=== PATIENT | female | born 2000 | race Hispanic/Latino ===

== ENCOUNTER 2022-06-18 04:59 | Inpatient (IN) | payer OTHER, SELFPAY ==
[2022-06-18] VITALS (104 sets, daily range): BP systolic 78–143; BP diastolic 46–95; PULSE 60–103; RESP 16–18; TEMP 36.2–37.1; O2SAT 92–100; BMI 32.8
--- NOTE | 2022-06-18 04:59 | LDADM ---
This patient, Iman Perera, was admitted to Labor/Delivery/Recovery 103 on 06/18/22 at 04:59. Plans for labor, pain management and were discussed with patient. Patient/family oriented to hospital policies and general routines including ID bracelet, bed and alarms, visiting hours, pain management, procedures, bathroom and other care routines, personal items, smoking policy, room service/diet and guest tray routines, infant security routines, and visiting hours. Patient/Family are encouraged to report perceived risks to care and to ask questions if they do not understand what they are told or what they should do. See OBIX for further documentation.
--- NOTE | 2022-06-18 05:27 | PM.IMHP ---
H&P: HPI History of Present Illness Date/Time: 06/18/22 05:27 Chief Complaint: Elevated blood pressure at term Narrative: this is a 21-year-old 2 para 1 last menstrual period was 09/21/2021, EDC is 06/28/2022, presents at 38 half weeks gestation for induction of labor. Her blood pressures have been elevated over the last 3 visits. She had a slight headache she is admitted for induction of labor she has an early ultrasound confirming. [facility] Family History Family History Other No pertinent family history Social History Social History Substance use: never Spiritual care concerns: No Meds Home Medications and Allergies Home Medications Medication Instructions Recorded Confirmed Type escitalopram oxalate 10 mg tablet 10 mg PO DAILY 06/02/22 06/02/22 History (Lexapro) vit no.95-ferrous 1 tablet PO DAILY 06/02/22 06/02/22 History fumarate 28 mg-folic acid 800 mcg tablet () Allergies Allergy/AdvReac Type Severity Reaction Status Date / Time No Known Allergies Allergy Unverified 12/06/17 18:40 Vital Signs Vital Signs - 24 hr 06/18/22 05:18 Pulse Rate 95 Blood Pressure 130/85 Exam Const: General: cooperative, healthy appearing and comfortable Nutritional Appearance: average body habitus Orientation/consciousness: oriented to person, oriented to place and oriented to time HENMT: Head: normal to inspection Resp: Effort & Inspection: normal respiratory effort Cardio: Rate: regular rate Rhythm: regular rhythm Heart sounds: S1 normal heart sound present and S2 normal heart sound present GI: Inspection: normal to inspection ( Soft gravid uterus) Auscultation: normal bowel sounds : External Female Exam: normal external appearance Speculum Exam - Vagina: normal appearance of the vagina Speculum Exam - Cervix: normal appearance of the cervix ( heart tones reassuring.) Assessment and Plan Assessment and plan (1) Term : Code(s): Z34.90 - Encounter for supervision of normal , unspecified, unspecified trimester Status: Acute (2) Gestational hypertension: Code(s): O13.9 - Gestational [-induced] hypertension without significant proteinuria, unspecified trimester Status: Acute (3) Positive testing for group B Streptococcus: Code(s): B95.1 - Streptococcus, group B, as the cause of diseases classified elsewhere Status: Acute Plan medical induction of labor. Spontaneous vaginal delivery is expected. She has an epidural candidate. She will be prophylaxed for group B strep. PH labs are drawn
[2022-06-18] MEDS: LACTATED RINGERS 1,000 ML 125 ML IV CONT ×3 (05:32→10:30)
[2022-06-18] MEDS: AMPICILLIN 2 GM/NS 100 ML 2 GM/100 ML BAG IVPB (05:33)
[2022-06-18] MEDS: OXYTOCIN 30 UNITS/NS 500 ML 30 UNITS/500 ML BAG IV CONT (05:33)
[2022-06-18 05:43] LABS: Alanine Aminotransferase 22 U/L (6-35); Albumin Level 3.8 g/dL (3.5-5.1); Alkaline Phosphatase 147 U/L (38-126); Anion Gap 8 mmol/L (8-16); Aspartate Amino Transferase 30 U/L (14-36); Bilirubin,Total 0.6 mg/dL (0.2-1.3); Blood Urea Nitrogen 9 mg/dL (7-17); Calcium 8.5 mg/dL (8.4-10.2); Carbon Dioxide 25 mmol/L (22-30); Chloride 103 mmol/L (98-107); Estimated Glomerular Filt Rate > 60; Glucose 98 mg/dL (65-110); Potassium 3.6 mmol/L (3.4-5.0); Sodium 136 mmol/L (137-145); Uric Acid 3.7 mg/dL (2.5-7.5)
[2022-06-18 05:45] LABS: Basophils Percent Auto 0.5 % (0.2-1.2); Eosinophils Absolute Auto 0.3 K/mm3 (0-0.3); Eosinophils Percent Auto 4.1 % (0-4.4); Hematocrit 38.7 % (37.0-47.0); Hemoglobin 13.4 g/dL (12.0-15.0); Immature Granulocyte Absolute 0.04 K/mm3 (0.00-0.031); Immature Granulocyte Percent A 0.5 % (0-0.5); Lymphocytes Absolute Auto 1.65 K/mm3 (0.9-3.2); Lymphocytes Percent Auto 20.3 % (18.3-44.2); Mean Corpuscular HGB Conc 34.6 g/dl (32-36); Mean Corpuscular Volume 89.6 fl (80-100); Mean Platelet Volume 10.3 fl (7.4-10.4); Monocytes Absolute Auto 0.6 K/mm3 (0.1-0.6); Monocytes Percent Auto 7.6 % (2.6-8.5); Neutrophils Absolute Auto 5.4 K/mm3 (1.3-6.7); Platelet Count Result 191 k/mm3 (150-375); Red Blood Count 4.32 M/mm3 (4.2-5.4); Red Cell Distribution Width 12.7 % (11.5-14.5); White Blood Count 8.1 K/mm3 (4.5-10.0)
[2022-06-18] MEDS: AMPICILLIN 1 GM/NS 50 ML 1 GM/50 ML BAG IVPB (09:13)
--- NOTE | 2022-06-18 09:17 | WPDANESEPP ---
Anes - Eval Pre Procedure Procedure: Labor Epidural Date/Time: 06/18/22 09:17 Surgeon: Arslan Preop Diagnosis: Pain during Labor Pre Op Diagnosis: Induction of Labor Patient Data Age: 21 Gender: F Height: 1.73 m Weight: 97.75 kg Last Vital Signs Temp 36.6 C 06/18/22 05:52 Pulse 88 06/18/22 09:15 BP 126/79 06/18/22 09:15 Pulse Ox 100 06/18/22 09:13 O2 Del Method Room Air 06/18/22 05:39 Allergies Allergy/AdvReac Type Severity Reaction Status Date / Time No Known Allergies Allergy Unverified 12/06/17 18:40 Home Medications Medication Instructions Recorded Confirmed Type escitalopram oxalate 10 mg tablet 10 mg PO DAILY 06/02/22 06/18/22 History (Lexapro) vit no.95-ferrous 1 tablet PO DAILY 06/02/22 06/18/22 History fumarate 28 mg-folic acid 800 mcg tablet () Laboratory Tests 06/18/22 06/18/22 06/18/22 05:18 05:18 05:18 WBC 8.1 K/mm3 K/mm3 (4.5-10.0) RBC 4.32 M/mm3 M/mm3 (4.2-5.4) Hgb 13.4 g/dL g/dL (12.0-15.0) Hct 38.7 % % (37.0-47.0) MCV 89.6 fl fl (80-100) MCH 31.0 pg pg (26-34) MCHC 34.6 g/dl g/dl (32-36) RDW 12.7 % % (11.5-14.5) Plt Count 191 k/mm3 k/mm3 (150-375) MPV 10.3 fl fl (7.4-10.4) Immature Gran % (Auto) 0.5 % % (0-0.5) Neut % (Auto) 67.0 % % (45.5-73.1) Lymph % (Auto) 20.3 % % (18.3-44.2) [place] % (Auto) 7.6 % % (2.6-8.5) Eos % (Auto) 4.1 % % (0-4.4) Baso % (Auto) 0.5 % % (0.2-1.2) Lymph # (Auto) 1.65 K/mm3 K/mm3 (0.9-3.2) [place] # (Auto) 0.6 K/mm3 K/mm3 (0.1-0.6) Eos # (Auto) 0.3 K/mm3 K/mm3 (0-0.3) Baso # (Auto) 0.0 K/mm3 K/mm3 (0.0-0.1) Abs Immat Gran (auto) 0.04 K/mm3 H K/mm3 (0.00-0.031) Absolute Neuts (auto) 5.4 K/mm3 K/mm3 (1.3-6.7) Absolute Nucleated RBC 0.0 K/mm3 K/mm3 (0.0-0.012) Nucleated RBC % 0.0 % % (0.0-0.2) Sodium Potassium Chloride Carbon Dioxide Anion Gap BUN Creatinine Estim Creat Clear Calc Estimated GFR Glucose Uric Acid Calcium Total Bilirubin AST ALT Alkaline Phosphatase Total Protein Albumin RPR Pending Blood Type O Negative Antibody Screen Positive Antibody Identification Passive Due to RH Imm Glob Antigen Identification Cancelled SOBIA, IgG Interpret Not Performed SOBIA, Poly Interpret Negative SOBIA, Complement Interp Not Performed 06/18/22 05:18 WBC RBC Hgb Hct MCV MCH MCHC RDW Plt Count MPV Immature Gran % (Auto) Neut % (Auto) Lymph % (Auto) [place] % (Auto) Eos % (Auto) Baso % (Auto) Lymph # (Auto) [place] # (Auto) Eos # (Auto) Baso # (Auto) Abs Immat Gran (auto) Absolute Neuts (auto) Absolute Nucleated RBC Nucleated RBC % Sodium 136 mmol/L L mmol/L (137-145) Potassium 3.6 mmol/L mmol/L (3.4-5.0) Chloride 103 mmol/L mmol/L (98-107) Carbon Dioxide 25 mmol/L mmol/L (22-30) Anion Gap 8 mmol/L mmol/L (8-16) BUN 9 mg/dL mg/dL (7-17) Creatinine 0.60 mg/dL L mg/dL (0.7-1.0) Estim Creat Clear Calc Not Reportable Estimated GFR > 60 (59 - ) Glucose 98 mg/dL mg/dL (65-110) Uric Acid 3.7 mg/dL mg/dL (2.5-7.5) Calcium 8.5 mg/dL mg/dL (8.4-10.2) Total Bilirubin 0.6 mg/dL mg/dL (0.2-1.3) AST 30 U/L U/L (14-36) ALT 22 U/L U/L (6-35) Alkaline Phosphatase 147 U/L H U/L (38-126) Tota
[2022-06-18] MEDS: ONDANSETRON INJ 4 MG/2 ML VIAL IV PUSH (10:19)
--- NOTE | 2022-06-18 12:43 | P.PCNOB_ITS ---
OB - Delivery Note Procedure Delivery date: 06/18/22 Procedure: mil Events: Chronic Hypertension Induction method: AROM Delivery augmentation: Pitocin Delivery monitor: External FHT Route of delivery: Episiotomy description: None Laceration Description: None Specimen: No Quantitative Blood Loss (ml): 60 Anesthesia type: Epidural Disposition: Floor [place] Baby Date of : 06/18/22 Time of : 12:37 Weeks of gestation at delivery: 38 presentation: vertex position: Right Occiput Anterior Placenta delivery description: Spontaneous Cord Vessel Description: 3 Vessels, Nuchal Cord and Loose score one minute: 8 score five minutes: 8
--- NOTE | 2022-06-18 12:45 | PM.DS ---
DS: Admitting Diagnosis Discharge Date 06/20/2022 Admitting Diagnosis 38+ week with gestation/ positive group B strep DS: Discharge Diagnosis Discharge Diagnosis (1) Positive testing for group B Streptococcus: Code(s): B95.1 - Streptococcus, group B, as the cause of diseases classified elsewhere Status: Acute (2) Gestational hypertension: Code(s): O13.9 - Gestational [-induced] hypertension without significant proteinuria, unspecified trimester Status: Acute (3) Term : Code(s): Z34.90 - Encounter for supervision of normal , unspecified, unspecified trimester Status: Acute DS: Summary Hospital Course Reason for hospitalization: patient was admitted for induction of labor secondary to elevated blood pressures. Hospital Course: Patient underwent spontaneous vaginal delivery at 12:37 p.m. 329 23. She was prophylaxed adequately with for group B strep. She was watched for the next 48hours. She remained afebrile. She was up, voiding without difficulty, ambulating, breast-feeding alma generally without complaint. Time Spent with Patient Time attestation: Total time spent providing and/or coordinating discharge services: Exam Const: General: cooperative, healthy appearing, comfortable and well groomed Nutritional Appearance: average body habitus Orientation/consciousness: oriented to person, oriented to place and oriented to time HENMT: Head: normal to inspection Resp: Effort & Inspection: normal respiratory effort Cardio: Rate: regular rate Rhythm: regular rhythm Heart sounds: S1 normal heart sound present and S2 normal heart sound present GI: Inspection: normal to inspection ( Fundus firm below the umbilicus) Auscultation: normal bowel sounds DS: Data Data Completed and Pending Labs on day of discharge: Labs from last 24 hours 06/18/22 06/18/22 06/18/22 05:18 05:18 05:18 WBC RBC Hgb Hct MCV MCH MCHC RDW Plt Count MPV Immature Gran % (Auto) Neut % (Auto) Lymph % (Auto) [place] % (Auto) Eos % (Auto) Baso % (Auto) Lymph # (Auto) [place] # (Auto) Eos # (Auto) Baso # (Auto) Abs Immat Gran (auto) Absolute Neuts (auto) Absolute Nucleated RBC Nucleated RBC % Sodium 136 L Potassium 3.6 Chloride 103 Carbon Dioxide 25 Anion Gap 8 BUN 9 Creatinine 0.60 L Estim Creat Clear Calc Not Reportable Estimated GFR > 60 Glucose 98 Uric Acid 3.7 Calcium 8.5 Total Bilirubin 0.6 AST 30 ALT 22 Alkaline Phosphatase 147 H Total Protein 7.0 Albumin 3.8 RPR Pending Blood Type O Negative Antibody Screen Positive Antibody Identification Passive Due to RH Imm Glob Antigen Identification Cancelled SOBIA, IgG Interpret Not Performed SOBIA, Poly Interpret Negative SOBIA, Complement Interp Not Performed 06/18/22 05:18 WBC 8.1 RBC 4.32 Hgb 13.4 Hct 38.7 MCV 89.6 MCH 31.0 MCHC 34.6 RDW 12.7 Plt Count 191 MPV 10.3 Immature Gran % (Auto) 0.5 Neut % (Auto) 67.0 Lymph % (Auto) 20.3 [place] % (Auto) 7.6 Eos % (Auto) 4.1 Baso % (Auto) 0.5 Lymph # (Auto) 1.65 [place] # (Auto) 0.6 Eos # (Auto) 0.3 Baso # (Auto) 0.0 Abs Immat Gran (auto) 0.04 H Absolute Neuts (auto) 5.4 Absolute Nucleated RBC 0.0 Nucleated RBC % 0.0 Sodium Potassium Chloride Carbon Dioxide Anion Gap BUN Creatinine Estim Creat Clear Calc Estimated GFR Glucose Uric Acid Calcium Total Bilirubin AST ALT Alkaline Phosphatase Total Protein Albumin RPR Blood Type Antibody Screen Antibody Identification Antigen Identification SOBIA, IgG Interpret SOBIA, Poly Interpret SOBIA, Complement Interp Discharge Plan Discharge Attending physician on discharge: Everett Wynn Discharging Clinician: Everett Wynn Patient Disposition: Home, Self-Care Activity:
[2022-06-18] MEDS: OXYTOCIN 30 UNITS/NS 500 ML 30 UNITS/500 ML BAG 125 UNITS IV CONT (13:15)
[2022-06-18 14:15] LABS: Rapid Plasma Reagin Non-Reactive (NonReactive)
--- NOTE | 2022-06-18 19:49 | OBPPTRN ---
Addendum entered by Nicki Mcintyre RN 06/18/22 19:49: Patient transferred to post room #284 at 1634. Original Note: Patient transferred to post room #284 via wheelchair. Support person present. Oriented to unit, room, information board, rooming in, admission packet and security measures. Patient verbalizes understanding.
[2022-06-19 04:00] VITALS: BP 121/74; PULSE 63; RESP 18; TEMP 36.6
[2022-06-19 05:42] LABS: Hematocrit 36.6 % (37.0-47.0); Hemoglobin 12.5 g/dL (12.0-15.0)
--- NOTE | 2022-06-19 06:07 | PM.OBPNVD ---
OB - PN: Subj Subjective Date/time seen: 06/19/22 06:07 Patient comments: no complaints and pain well controlled baby status: doing well and nursing well OB - PN: Obj Data Labs 06/19/22 04:05 06/18/22 05:18 Labs: Laboratory Results - last 24 hr 06/18/22 06/18/22 06/19/22 05:18 05:18 04:05 Hgb 12.5 Hct 36.6 L RPR Non-reactive Blood Type O Negative Antibody Screen Positive Antibody Identification Passive Due to RH Imm Glob Antigen Identification Cancelled SOBIA, IgG Interpret Not Performed SOBIA, Poly Interpret Negative SOBIA, Complement Interp Not Performed OB - PN A/P Plan day: 1 Plan: routine care Time Spent With Patient Time: Total time spent is greater than 50% in coordination of care (as documented) at patient's floor/unit and/or counseling patient: Time with patient: less than 15 minutes Exam Const: General: cooperative, healthy appearing and comfortable Nutritional Appearance: average body habitus Orientation/consciousness: oriented to person, oriented to place and oriented to time Resp: Effort & Inspection: normal respiratory effort Cardio: Rate: regular rate Rhythm: regular rhythm Heart sounds: S1 normal heart sound present and S2 normal heart sound present GI: Inspection: normal to inspection
[2022-06-19 08:15] VITALS: BP 128/92; PULSE 77; RESP 16; TEMP 36.5; O2SAT 100
--- NOTE | 2022-06-19 08:19 | WPDANLDPN2 ---
Anes-Prog Note L&D Date/Time: 06/19/22 08:19 Comfortable throughout: labor Neuraxial method: epidural Epidural/Spinal procedure site: clean & non-tender Neuro status: Neuro function grossly intact. Cardiovascular status: normal Respiratory status: normal Airway patency: baseline Mental status: baseline Post-Op hydration status: normal Vital Signs: Last Vital Signs Temp 36.6 C 06/19/22 04:00 Pulse 63 06/19/22 04:00 Resp 18 06/19/22 04:00 BP 121/74 06/19/22 04:00 Pulse Ox 96 06/18/22 17:30 O2 Del Method Room Air 06/18/22 20:00 Pain score (VAS): 0 I/O: Intake & Output 06/18/22 06/19/22 06/19/22 23:59 07:59 15:59 Intake Total 950 900 Output Total 1400 1150 Balance -450 -250 Patient feedback: Patient satisfied with anesthetic care.
[2022-06-19] MEDS: MULTIVIT/MIN/PREN/FOL AC/IRON TABLET 1 TAB PO (10:03)
[2022-06-19] MEDS: TETANUS,DIPHTHERIA,AC PERTUSSIS ADULT (0.5 ML) BOOSTRIX IM (10:03)
[2022-06-19] MEDS: DOCUSATE SODIUM 100 MG CAPSULE PO ×2 (10:03→17:22)
[2022-06-19 12:14] VITALS: BP 132/86; PULSE 80; RESP 16; TEMP 36.7; O2SAT 100
--- NOTE | 2022-06-19 16:28 | PC.NURSE ---
[id number] Introductions were made and Mother demonstrated her ability to independently latch with her own unique style. She denies any nipple discomfort and is responsively . is currently meeting outcomes for weight, output, jaundice and feeding frequencies of 8-12 times in 24 hours. Mother declines any additional assistance/education at this time. Mother is encouraged to call for assistance if her infant doesn?t latch or there is discomfort with latching. Mother voiced understanding of information shared and the mom reminded of the mom/baby guide for an additional resource. Reported to the primary RN.
[2022-06-19 17:20] VITALS: BP 127/85; PULSE 86; RESP 18; TEMP 36.7
[2022-06-19 20:32] VITALS: BP 123/84; PULSE 78; RESP 16; TEMP 37; O2SAT 97
--- NOTE | 2022-06-20 05:34 | PM.OBPNVD ---
OB - PN: Subj Subjective Date/time seen: 06/20/22 05:34 Patient comments: no complaints and pain well controlled baby status: doing well and nursing well OB - PN: Obj Data Labs 06/19/22 04:05 06/18/22 05:18 Labs: Laboratory Results - last 24 hr 06/19/22 04:05 Hgb 12.5 Hct 36.6 L OB - PN A/P Plan day: 2 Plan: routine care, discharge home and follow up 6 weeks Time Spent With Patient Time: Total time spent is greater than 50% in coordination of care (as documented) at patient's floor/unit and/or counseling patient: Time with patient: less than 15 minutes Exam Const: General: cooperative, healthy appearing and comfortable Nutritional Appearance: average body habitus Orientation/consciousness: oriented to person, oriented to place and oriented to time HENMT: Head: normal to inspection Resp: Effort & Inspection: normal respiratory effort Cardio: Rate: regular rate Rhythm: regular rhythm Heart sounds: S1 normal heart sound present and S2 normal heart sound present GI: Inspection: normal to inspection
[2022-06-20 08:10] VITALS: BP 133/89; PULSE 71; RESP 16; TEMP 36.7; O2SAT 100
[2022-06-20] MEDS: MULTIVIT/MIN/PREN/FOL AC/IRON TABLET 1 TAB PO (09:14)
--- NOTE | 2022-06-20 12:41 | PC.NURSE ---
Patient viewed the discharge video Mother & Baby Care, The First Two Weeks . Patient was given the opportunity and encouraged to ask questions. Patient verbalized understanding of information shared and has been given the mother/baby guide for home reference.
--- NOTE | 2022-06-20 15:50 | PC.NURSE ---
[id number] Mother led the conversation with her experience and plan to feed her infant so far and her ability to independently latch optimally without discomfort. Mother is feeding appropriately for growth of and understands stimulating to eat if needed in her own unique style of positioning. Offered assistance with a more comfortable position and mother declined. Infant has had appropriate feedings in the last 24 hours meets the outcomes for weight, output and jaundice at this time. Mother states she is confident to continue effectively her infant at home, when to call for assistance and denies any additional assistance or education at this time. Mother voiced understanding of the education shared. Reported to the primary RN.
[2022-06-21 11:24] VITALS: BP 127/93; PULSE 78; RESP 18; TEMP 37.1; O2SAT 100
== END 2022-06-20 12:41 | disposition home or self-care (01) | DRG 807 ==
LOC: ANHLDR 12:48 → ANHOB2 16:36
PROVIDERS: Admitting Provider Obstetrics & Gynecology; Visit Provider Obstetrics & Gynecology
DX: O13.4 Gestational [pregnancy-induced] hypertension without significant proteinuria, complicating childbirth (principal); Z37.0 Single live birth; O99.824 Streptococcus B carrier state complicating childbirth; O69.81X0 Labor and delivery complicated by cord around neck, without compression, not applicable or unspecified; O77.0 Labor and delivery complicated by meconium in amniotic fluid; O71.82 Other specified trauma to perineum and vulva; Z3A.38 38 weeks gestation of pregnancy
CPT/HCPCS: 36415; 80053; 84550; 85014; 85018; 85025; 86592; 86850; 86880; 86900; 86901; 86902; 90715; A9270; J0290; J2405; J2590; J2795; J7120